=== PATIENT | female | born 1935 | race Caucasian/White ===

== ENCOUNTER 2021-04-17 16:29 | Emergency (ER) | payer MEDICARE ==
[~2021-04-17] VITALS: Ht 162.6 cm; Wt 95.5 kg
--- NOTE | 2021-04-17 16:38 | PHYS DOC ---
General Adult EDM: Chief Complaint: NEURO SYMPTOMS/DEFICITS HPI: HPI: Patient is a 85 year old female brought in by her for right-sided facial paralysis, which she noticed upon awakening this morning. She reports that he did not notice any paralysis last night before bed. She denies numbness, tingling, motor weakness. She denies vision loss or photophobia. She does have some tearing of her right eye, she is unable to fully close her right eye. She denies chest pain, dyspnea, palpitations, abdominal pain, nausea, vomiting. She denies upper extremity or lower extremity weakness or numbness or tingling. She denies headache, dizziness, vertigo. She denies fall or head injury. She denies neck pain or stiffness. No previous history of Pugh palsy or paralysis. Review of Systems: Review of Systems: Constitutional: Denies fever or chills. [] Eyes: Denies change in visual acuity. Tearing of the right eye, unable to fully close right eye HENT: Denies nasal congestion or sore throat. [] Respiratory: Denies cough or shortness of breath. [] Cardiovascular: Denies chest pain or edema. [] GI: Denies abdominal pain, nausea, vomiting, diarrhea Musculoskeletal: Denies back pain or joint pain. [] Integument: Denies rash. [] Neurologic: Denies headache, numbness or tingling or peripheral motor weakness. Right-sided facial paralysis. Denies dizziness or syncope. Endocrine: Denies polyuria or polydipsia. [] Lymphatic: Denies swollen glands. [] Psychiatric: Denies depression or anxiety. [] Heart Score: C/O Chest Pain: No Risk Factors: Risk Factors: DM, Current or recent (<one month) smoker, HTN, HLP, family history of CAD, obesity. Risk Scores: Score 0 - 3: 2.5% MACE over next 6 weeks - Discharge Home Score 4 - 6: 20.3% MACE over next 6 weeks - Admit for Clinical Observation Score 7 - 10: 72.7% MACE over next 6 weeks - Early Invasive Strategies Physical Exam: PE: Constitutional: Well developed, well nourished, no acute distress, non-toxic appearance. [] HENT: Normocephalic, atraumatic, oropharynx is patent and clear, mucous membranes are moist. Uvula midline. Tongue is midline. TMs are clear bilaterally. Eyes: PERRL, EOMI, conjunctiva normal, no discharge. She is not able to fully close her right eye, there is some clear tearing of her right eye. Sclera are clear, anicteric. Neck: Normal range of motion, no tenderness, supple, no stridor. Trachea midline. No JVD. No meningismus. Cardiovascular:Heart rate regular rhythm, +2 radial and dorsalis pedis pulses bilaterally. Lungs & Thorax: Bilateral breath sounds clear to auscultation [] Abdomen: Bowel sounds normal, soft, no tenderness, no masses, no pulsatile masses. [] Skin: Warm, dry, no erythema, no rash. [] Back: No tenderness, no CVA tenderness. [] Extremities: No tenderness, no cyanosis, no clubbing, ROM intact, no edema. No calf tenderness. Neurologic: She is awake, alert, oriented x3. 5-5 motor strength all 4 extremities. No pronator drift. No dysmetria. No limb ataxia. Speech is clear and fluent, no evidence of dysarthria or aphasia. No gross visual deficit. There is complete paralysis of the right face, including forehead. Tongue is midline. Sensation is grossly intact. She is ambulatory with a stea dy gait. Psychologic: Affect normal, judgement normal, mood normal. She is pleasant cooperative [] EKG: EKG: [] Radiology/Procedures: Radiology/Procedures: IMAGING REPORT Signed PATIENT: SADIQ PINEDA ACCOUNT: [id number] : 1935 LOCATION: ER AGE: 85 SEX: F EXAM STATUS: REG ER ORD. PHYSICIAN: BORIS SAUCEDA DO REASON: right facial droop PROCEDURE: CT HEAD WO CONTRAST EXAM: CT head without contrast INDICATION: Right facial droop COMPARISON: None TECHNIQUE: Axial CT imaging through the head without intravenous contrast. Coronal reformats were obtained One or more of the following individualized dose reduction techniques were utilized for this examination: 1. Automated exposure control 2. Adjustment of the mA and/or kV according to patient size 3. Use of iterative reconstruction technique. FINDINGS: Ventricles and sulci are mildly enlarged. Au-white matter differentiation is maintained. No intracranial hemorrhage, acute infarct, or mass lesion. Basal cisterns are clear. The calvarium is intact. Paranasal sinuses and mastoid air cells are clear. Lenses have been extracted. IMPRESSION: No acute intracranial abnormality. Electronically signed by: Maris Dougherty MD (04/17/2021 5:17 PM) [id number] DICTATED and SIGNED BY: MARIS DOUGHERTY MD DATE: 04/17/21 [id number] 0 Course & Med Decision Making: Course & Med Decision Making Pertinent Labs and Imaging studies reviewed. (See chart for details) I discussed the findings, differential diagnosis and plan of care with the patient. 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 CT of the head is unremarkable for acute process. She is given a first dose of p.o. prednisone here. I discussed that she should watch her glucose closely at home, given her diabetes. I explained that she must maintain compliance with medications and diet. She feels comfortable plan for discharge home. I gave her some paper tape so that she may close her eye shut, especially while sleeping, to avoid eye dryness or corneal abrasion. She may use [id number] lubrication drops as well. She is comfortable with plan for discharge home. She should follow-up with her PCP. Ligia Disclaimer: Ligia Disclaimer: This electronic medical record was generated, in whole or in part, using a voice recognition dictation system. Departure Departure Impression: Primary Impression: Pugh palsy Disposition: 01 HOME / SELF CARE / HOMELESS Condition: STABLE Referrals: HUNG PRETTY (PCP) Patient Instructions: Pugh's Palsy Additional Instructions: Take the medication as directed. Please return to the ER for headache, dizziness, chest pain, shortness of breath, weakness, fall or injury or for any other concerns. Please use [id number] lubrication drops to prevent your eye from drying out. You may use to which the paper tape to keep your eye taped closed at night, to prevent your eye from drying out or from getting an in fection or scratch on your eye. Please contact your primary care physician for follow-up. Scripts Prednisone (PREDNISONE) 50 Mg Tablet 1 TAB PO DAILY for 6 Days, #6 TAB take next dose on 04/18/21 Prov: BORIS SAUCEDA DO 04/17/21 BORIS SAUCEDA DO Apr 17, 2021 16:38
--- NOTE | 2021-04-17 17:20 | RAD ---
EXAM: CT head without contrast INDICATION: Right facial droop COMPARISON: None TECHNIQUE: Axial CT imaging through the head without intravenous contrast. Coronal reformats were obt ained One or more of the following individualized dose reduction techniques were utilized for this examinat ion: 1. Automated exposure control 2. Adjustment of the mA and/or kV according to patient size 3. Use of iterative reconstruction technique. FINDINGS: Ventricles and sulci are mildly enlarged. Au-white matter differentiation is maintained. No intracr anial hemorrhage, acute infarct, or mass lesion. Basal cisterns are clear. The calvarium is intact. P aranasal sinuses and mastoid air cells are clear. Lenses have been extracted. IMPRESSION: No acute intracranial abnormality. Electronically signed by: Maris Dougherty MD (04/17/2021 5:17 PM) [id number]
[2021-04-17 17:50] VITALS: BP 205/104
[2021-04-17] MEDS ORDERED: PRED50TA PO (17:55)
[2021-04-17] MEDS ORDERED: predniSONE 10 MG TABLET PO ONE (18:00)
== END 2021-04-17 18:04 | disposition home or self-care (01) ==
LOC: ER 16:29
DX: G51.0 Bell's palsy (principal); R51.9 Headache, unspecified
CPT/HCPCS: 70450; 99284; J7512